=== PATIENT | male | born 1970 | race Caucasian/White ===

== ENCOUNTER → 2022-09-01 | Outpatient (CLI) | payer OTHER ==
[~2022-09-01] MED LIST: Bactrim Ds Tab1 EACH PO; Cleocin HCl150 MG PO; Norco 5-325 Ta1 EACH PO; Zofran4 MG PO
[2022-09-01 19:54] LABS: BASOPHILS ABSOLUTE AUTO 0.09 K/mm3 (0.00-0.23); BASOPHILS PERCENT AUTO 1 % (0-2); EOSINOPHILS ABSOLUTE AUTO 0.28 K/mm3 (0.00-0.68); EOSINOPHILS PERCENT AUTO 4 % (0-6); Hematocrit 51.9 % (37.0-53.0); Hemoglobin 16.9 g/dL (13.5-17.5); IMMATURE GRAN ABSOLUTE AUTO 0.09 K/mm3 (0.00-0.10); IMMATURE GRAN PERCENT AUTO 1 % (0-1); LYMPHOCYTES ABSOLUTE AUTO 2.14 K/mm3 (0.84-5.20); LYMPHOCYTES PERCENT AUTO 28 % (21-46); MONOCYTES ABSOLUTE AUTO 0.89 K/mm3 (0.16-1.47); MONOCYTES PERCENT AUTO 12 % (4-13); Mean Corpuscular HGB 28.2 pg (26.0-34.0); Mean Corpuscular HGB Conc 32.6 g/dL (31.5-36.5); Mean Corpuscular Volume 87 fL (80-100); NEUTROPHILS ABSOLUTE AUTO 4.06 K/mm3 (1.96-9.15); NEUTROPHILS PERCENT AUTO 54 % (41-73); Platelet Count 320 K/mm3 (150-400); RDW Coefficient Variation 12.8 % (11.7-14.2); RDW Standard Deviation 40.1 fL (35.1-46.3); White Blood Cell Count 7.55 K/mm3 (4.00-11.30)
[2022-09-01 20:16] LABS: Alanine Aminotransfer (ALT/SGP 35 U/L (12-78); Albumin, Blood 3.6 g/dL (3.4-5.0); Albumin/Globulin Ratio 0.9 (0.8-1.8); Alk Phos 71 U/L (50-136); Anion Gap 5 mmol/L (6-16); Aspartate Aminotrans (AST/SGOT 18 U/L (12-37); Bilirubin, Total 0.2 mg/dL (0.1-1.0); Blood Urea Nitrogen 25 mg/dL (8-24); Bun/Creatinine Ratio 24.3 (12.0-20.0); CO2, Blood 23 mmol/L (21-32); Calcium, Blood 8.9 mg/dL (8.5-10.1); Chloride, Blood 108 mmol/L (98-108); Cholesterol 214 mg/dL (50-200); Creatinine, Blood 1.03 mg/dL (0.60-1.20); Glomerular Filtration Rate 87 (60-); Glucose, Blood 99 mg/dL (70-99); HDL Cholesterol 54 mg/dL (>39); LDL/HDL RATIO 2.4; Low Density Lipoprotein Chol 131 mg/dL (0-110); Sodium, Blood 136 mmol/L (136-145); Total Protein, Blood 7.6 g/dL (6.4-8.2); Triglycerides 143 mg/dL (30-160); Very Low Density Lipoprot Chol 28 mg/dL (6-32)
== END | disposition home or self-care (01) ==
LOC: LAB SHORT 08:30
PROVIDERS: Family Medicine
DX: Z51.81 Encounter for therapeutic drug level monitoring (principal); Z79.899 Other long term (current) drug therapy
CPT/HCPCS: 80053; 80061; 85025

== ENCOUNTER 2024-06-14 07:29 | Day surgery (SDC) | payer OTHER ==
[~2024-06-14] VITALS: Ht 177.8 cm; Wt 109.9 kg
[~2024-06-14 07:29] MED LIST changes: +ALDACTONE25 MG PO; +ASPIR 8181 M1 PO; +ATOR40TA PO; +CARV25 PO; +FURO40 PO; +LOSA25 PO; +Lactated Ringer's 1,000 ML IV SCH; +MAGNESIUM OXID400 M1 PO
--- NOTE | 2024-06-14 09:25 | NUR ---
Ambulatory in Day Surgery. History, Chart, Medications and Allergies reviewed before start of procedure. Lungs clear T/O to Auscultation. Patient confirms NPO status and agrees with scheduled surgery. Pre-Op teaching done. Pt verbalizes understanding. Patient States Post-Procedure ride home has been arranged.
[2024-06-14 09:30] VITALS: BP 112/69
[2024-06-14] MEDS ORDERED: propofoL 40 ML IV ONE (09:36)
--- NOTE | 2024-06-14 09:49 | NUR ---
06/14/24 0949 Zakia Lamb 0944- History, Chart, Medications and Allergies reviewed before start of procedure.MONITOR INTACT WITH CONTINUOUS PULSE OXIMETRY, CONTINUOUS END TITAL CO2, AND INTERMITTENT BLOOD PRESSURE.3-LEAD EKG REVIEWED WITH PHYSICIAN PRIOR TO START OF PROCEDURE.O2 VIA POM INTACT THROUGHOUT SEDATION/PROCEDURE.DR ARREDONDO PROVIDING ANESTHESIA.
[2024-06-14 10:16] VITALS: BP 108/72
--- NOTE | 2024-06-14 10:18 | NUR ---
REPORT RECEIVED FROM REEMA HARRIS. VSS. PT ON RA. PT ABLE TO REPOSITION SELF IN BED. PT REQUESTING PO FLUIDS AND TOLERATING THEM WELL. PT DENIES PAIN TO ABD, BUT REPORTS PAIN TO HAND FROM INFILTRATED IV SITE - SEE SEDATION RN NOTE. PT DENIES NAUSEA OR OTHER DISCOMFORTS.
[2024-06-14 10:28] VITALS: BP 103/67
[2024-06-14 10:38] VITALS: BP 105/78
--- NOTE | 2024-06-14 11:00 | NUR ---
1038: Patient up to Ambulate independently. Gait steady. VSS AND CONSISTENT WITH PT BASELINE. PT HAS NO COMPLAINTS AND VERBALIZES READINESS TO GO HOME. Discharge instructions reviewed with patient. Patient verbalizes understanding. Copy given to patient to take home. Patient States Post-Procedure ride home has been arranged. Discharged via wheelchair to private car for ride home.
== END 2024-06-14 10:40 | disposition home or self-care (01) ==
LOC: ORSCMMR 07:29 → ORD 09:30 → ORSCMMR 10:40
PROVIDERS: Internal Medicine Gastroenterology
PROC: 0DBM8ZX Excision of Descending Colon, Via Natural or Artificial Opening Endoscopic, Diagnostic (ICD-10-PCS; principal; 2024-06-14 09:30)
PROC: 0DBN8ZX Excision of Sigmoid Colon, Via Natural or Artificial Opening Endoscopic, Diagnostic (ICD-10-PCS; principal; 2024-06-14 09:30)
DX: Z12.11 Encounter for screening for malignant neoplasm of colon (principal); R19.5 Other fecal abnormalities; K63.5 Polyp of colon; G47.33 Obstructive sleep apnea (adult) (pediatric); I50.9 Heart failure, unspecified; E78.00 Pure hypercholesterolemia, unspecified; Z79.82 Long term (current) use of aspirin; Z79.899 Other long term (current) drug therapy
CPT/HCPCS: 88305; J2704; J7120

== ENCOUNTER 2024-07-04 07:27 | Day surgery (SDC) | payer OTHER ==
[~2024-07-04] VITALS: Ht 172.7 cm; Wt 109.2 kg
--- NOTE | 2024-07-04 06:55 | NUR ---
07/04/[address] TOLEDO, SEE ANESTHESIA RECORDS.
[2024-07-04 08:17] VITALS: BP 116/83
[2024-07-04] MEDS ORDERED: ESOM20 (08:24)
[2024-07-04] MEDS ORDERED: Vasopressin 20 UNITS/ML 1ML Vial ONE (09:33)
[2024-07-04] MEDS ORDERED: Midazolam HCl 1MG / ML 2ML Vial ONE (09:35)
[2024-07-04] MEDS ORDERED: propofoL 40 ML IV ONE (09:35)
[2024-07-04 10:21] VITALS: BP 101/74
--- NOTE | 2024-07-04 10:43 | NUR ---
Discharge instructions reviewed with patient. Patient verbalizes understanding. Copy given to patient to take home. Patient States Post-Procedure ride home has been arranged. Discharged via wheelchair to private car for ride home.
== END 2024-07-04 10:41 | disposition home or self-care (01) ==
LOC: ORSCMMR 07:27 → ORD 09:00 → ORSCMMR 09:00
PROVIDERS: Internal Medicine Gastroenterology
PROC: 0DBM8ZX Excision of Descending Colon, Via Natural or Artificial Opening Endoscopic, Diagnostic (ICD-10-PCS; principal; 2024-07-04 09:00)
PROC: 0DBK8ZX Excision of Ascending Colon, Via Natural or Artificial Opening Endoscopic, Diagnostic (ICD-10-PCS; principal; 2024-07-04 09:00)
PROC: 0DBL8ZX Excision of Transverse Colon, Via Natural or Artificial Opening Endoscopic, Diagnostic (ICD-10-PCS; principal; 2024-07-04 09:00)
DX: Z12.11 Encounter for screening for malignant neoplasm of colon (principal); R19.5 Other fecal abnormalities; D12.3 Benign neoplasm of transverse colon; K63.5 Polyp of colon; I10 Essential (primary) hypertension; G47.33 Obstructive sleep apnea (adult) (pediatric); Z79.899 Other long term (current) drug therapy; E66.9 Obesity, unspecified; Z68.36 Body mass index [BMI] 36.0-36.9, adult; Z79.82 Long term (current) use of aspirin
CPT/HCPCS: 88305; J2250; J2704; J7120